=== PATIENT | female | born 1995 | race Hispanic/Latino ===

== ENCOUNTER 2019-12-20 01:27 | Emergency (ER) | payer SELFPAY ==
[~2019-12-20] VITALS: Ht 157.5 cm; Wt 64.0 kg
[2019-12-20] MEDS ORDERED: LIDOCAINE HCL 1% LOCAL INJ 20 ML VIAL ONE (02:00)
[2019-12-20] MEDS ORDERED: BACITRACIN ZINC 0.9GM TP ONE ×2 (02:08→02:15)
[2019-12-20] MEDS ORDERED: TETANUS/DIPHTHERIA TOX ADULT 0.5 ML SYR ONE (02:09)
[2019-12-20] MEDS ORDERED: TETANUS/DIPHTHERIA TOX ADULT 0.5 ML SYR IM ONE (02:15)
[2019-12-20] MEDS ORDERED: BACTRIM DS TAB1 EACH PO (02:17)
--- NOTE | 2019-12-20 02:17 | Emergency Department Note ---
History of Present Illnes History of Present Illness Chief Complaint: Laceration rgt upper thigh History of Present Illness This is a 24 year old female. then cut rgt upper thigh. Historian: Patient Arrival Mode: Car History limited by: condition of the patient (normal) Social Contact Worker Required: No Onset (how long ago): day(s) (1) Location: n/a Quality: n/a Radiation: Denies non-radiation Severity: mild Onset quality: sudden Duration (how long): day(s) (1) Timing of current episode: constant Progression: unchanged Chronicity: new Context: Denies recent illness, Denies recent surgery, Denies recent immobilization, Denies recent travel, Denies trauma/injury, Denies new medications, Denies hx of DVT/PE, Denies non-compliance w/ medications, Denies other Relieving factors: none Exacerbating factors: none Treatments prior to arrival: none Past Medical/Family History Physician Review I have reviewed the patient's past medical and family history. Any updates have been documented here. Past Medical History Recent Fever: No Clinical Suspicion of Infectio: No New/Unexplained Change in Ment: No Past Medical History: None Past Surgical History: None Social History Smoking Cessation: Never Smoker Alcohol Use: Occasional Any Illegal Drug Use: No TB Exposure/Symptoms: No Physically hurt or threatened: No Other Last Tetanus: UNK Any Pre-Existing Lines (PICC,: No Is patient up to date on immun: Yes Last Flu: NONE Last Pneumovax: NA Review of Systems Review of Systems Constitutional: Reports no symptoms EENTM: Reports no symptoms Cardiovascular: Reports no symptoms Respiratory: Reports no symptoms Gastrointestinal: Reports no symptoms Genitourinary: Reports no symptoms Musculoskeletal: Reports no symptoms Integumentary: Reports as per HPI Neurological: Reports no symptoms Psychological: Reports no symptoms Endocrine: Reports no symptoms Hematological/Lymphatic: Reports no symptoms Review of other systems: All other systems negative Physical Exam Related Data Triage Vital Signs Vital Signs Date Time Temp Pulse Resp B/P (MAP) Pulse Ox O2 Delivery O2 Flow Rate FiO2 12/20/19 01:40 97.6 112 18 155/95 98 Vital signs reviewed: Yes Physical Exam CONSTITUTIONAL Constitutional: Present well-developed, Present well-nourished HENT HENT: Present normocephalic, Present atraumatic, Present oropharynx clear/moist, Present nose normal HENT L/R: Present left ext ear normal, Present right ext ear normal EYES Eyes: Reports PERRL, Reports conjunctivae normal NECK Neck: Present ROM normal PULMONARY Pulmonary: Present effort normal, Present breath sounds normal CARDIOVASCULAR Cardiovascular: Present regular rhythm, Present heart sounds normal, Present capillary refill normal, Present normal rate GASTROINTESTINAL Abdominal: Present soft, Present nontender, Present bowel sounds normal GENITOURINARY Genitourinary: Present exam deferred SKIN Skin: Present warm, Present dry, Present other (6 cm right upper thigh ) MUSCULOSKELETAL Musculoskeletal: Present ROM normal NEUROLOGICAL Neurological: Present alert, Present oriented x 3, Present no gross motor or sensory deficits PSYCHOLOGICAL Psychological: Present mood/affect normal, Present judgement normal Procedures Laceration Laceration: Laceration 1 Site: lower extremity (6cm superficial laceration rgt upper thigh) Side: right (thigh) Size (cm): 6 Description: linear, clean Depth: simple, single layer Local anesthesia: lidocaine 2% Pre-repair: irrigated extensively Skin layer closed with: nylon Size (cm): 4-0 Number of sutures: 5 Technique: simple, interrupted Assessment & Plan Medical Decision Making MDM take rx med if needed Assessment & Plan Final Impression: (1) Laceration of right thigh Depart Disposition: HOME, SELF-CARE Last Vital Signs Date Time Temp Pulse Resp B/P (MAP) Pulse Ox O2 Delivery O2 Flow Rate FiO2 12/20/19 01:40 97.6 112 18 155/95 98 Home Meds Active Scripts Sulfamethoxazole/Trimethoprim (BACTRIM DS TABLET) 1 Each Tablet, 1 TAB PO BID for 10 Days, #20 TAB Prov:JOE BONDS 12/20/19 Medications in the ED Lidocaine HCl 20 ml STK-MED ONCE .ROUTE ; Start 12/20/19 at 02:00; Stop 12/20/19 at 01:57; Status DC Tetanus/ Diphtheria Toxoids 0.5 ml ONCE ONCE IM ; Start 12/20/19 at 02:15; Stop 12/20/19 at 02:16 Bacitracin Zinc 1 ea ONCE ONCE TP ; Start 12/20/19 at 02:15; Stop 12/20/19 at 02:16 Bacitracin Zinc 1 ea STK-MED ONCE TP ; Start 12/20/19 at 02:08; Stop 12/20/19 at 02:06; Status DC Tetanus/ Diphtheria Toxoids 0.5 ml STK-MED ONCE .ROUTE ; Start 12/20/19 at 02:09; Stop 12/20/19 at 02:06; Status DC JOE BONDS Dec 20, 2019 02:17
[2019-12-20 02:22] VITALS: BP 155/95
== END 2019-12-20 02:22 | disposition home or self-care (01) ==
LOC: FSED 01:27
DX: S71.111A Laceration without foreign body, right thigh, initial encounter (principal); X78.8XXA Intentional self-harm by other sharp object, initial encounter; Y92.008 Other place in unspecified non-institutional (private) residence as the place of occurrence of the external cause
CPT/HCPCS: 12002; 90471; 90714; 96372; 99283; J2001

== ENCOUNTER → 2020-01-03 | Emergency (ER) | payer SELFPAY ==
[~2020-01-03] VITALS: Ht 154.9 cm; Wt 63.5 kg
[~2020-01-03] MED LIST: BACTRIM DS TAB1 EACH PO
--- NOTE | 2020-01-03 17:35 | Emergency Department Note ---
History of Present Illnes History of Present Illness History of Present Illness This is a 24 year old female here for suture removal Historian: Patient Arrival Mode: Car Rib Sawyer Required: No Onset (how long ago): week(s) (2) Location: lacerration to right outer thigh arae sutured 2 weeks ago here in the ER Severity: unable to specify (resolved) Onset quality: sudden Timing of current episode: constant Progression: resolved Chronicity: new Relieving factors: none Exacerbating factors: none Treatments prior to arrival: other (sutures) Past Medical/Family History Physician Review I have reviewed the patient's past medical and family history. Any updates have been documented here. Past Medical History Recent Fever: No Clinical Suspicion of Infectio: No New/Unexplained Change in Ment: No Past Medical History: None, Hypothyroidism (off all meds for 2 years told she needs to follow with PMD) Past Surgical History: None Social History Smoking Cessation: Never Smoker Counseling Performed: No Alcohol Use: Social Any Illegal Drug Use: No TB Exposure/Symptoms: No Physically hurt or threatened: No Other Last Tetanus: UNK Any Pre-Existing Lines (PICC,: No Is patient up to date on immun: No Review of Systems Review of Systems Constitutional: Reports no symptoms EENTM: Reports no symptoms Cardiovascular: Reports no symptoms Respiratory: Reports no symptoms Gastrointestinal: Reports no symptoms Genitourinary: Reports no symptoms Musculoskeletal: Reports no symptoms Integumentary: Reports no symptoms Neurological: Reports no symptoms Psychological: Reports no symptoms Endocrine: Reports no symptoms Hematological/Lymphatic: Reports no symptoms Review of other systems: All other systems negative Physical Exam Physical Exam CONSTITUTIONAL Constitutional: Present well-developed, Present well-nourished HENT HENT: Present normocephalic, Present atraumatic EYES Eyes: Reports PERRL, Reports conjunctivae normal NECK Neck: Present ROM normal, Present supple PULMONARY Pulmonary: Present effort normal, Present breath sounds normal CARDIOVASCULAR Cardiovascular: Present regular rhythm, Present irregular rhythm, Present heart sounds normal, Present intact distal pulses, Present capillary refill normal GASTROINTESTINAL Abdominal: Present soft, Present nontender GENITOURINARY Genitourinary: Present exam deferred SKIN Skin: Present warm, Present dry MUSCULOSKELETAL Musculoskeletal: Present ROM normal NEUROLOGICAL Neurological: Present alert, Present oriented x 3, Present DTRs normal, Present no gross motor or sensory deficits PSYCHOLOGICAL Psychological: Present mood/affect normal, Present behavior normal, Present thought content normal, Present judgement normal Assessment & Plan Medical Decision Making MDM sutures removed and sent home Assessment & Plan Final Impression: (1) Visit for suture removal Depart Disposition: HOME, SELF-residential Meds Active Scripts Sulfamethoxazole/Trimethoprim (BACTRIM DS TABLET) 1 Each Tablet, 1 TAB PO BID for 10 Days, #20 TAB Prov:JOE BONDS 12/20/19 BRYCE BRYANT MD Jan 03, 2020 17:35
== END | disposition home or self-care (01) ==
LOC: FSED 18:53
DX: Z48.02 Encounter for removal of sutures (principal); E03.9 Hypothyroidism, unspecified
CPT/HCPCS: 99282; S0630